=== PATIENT | male | born 1975 | race Caucasian/White ===

== ENCOUNTER 2017-12-11 09:44 | Observation (INO) | payer OTHER ==
[2017-12-11] MEDS ORDERED: Adacel (T-DAP) 0.5 ML VIAL ONE (10:12)
[2017-12-11] MEDS ORDERED: Lidocaine 1% w/Epinephrine 1:100K 30 ML VIAL ONE (10:44)
[2017-12-11 11:14] LABS: #Basophils 0.1 thou/uL (0.0-0.2); #Monocytes 0.5 thou/uL (0.11-0.59); #Neutrophils 9.9 thou/uL (1.40-6.50); %Basophils 0.5 % (0.0-1.0); %Eosinophils 0.2 % (0.0-10.0); %Monocytes 4.3 % (0.0-10.0); %Neutrophils 85.9 % (42.0-75.0); Hemoglobin 12.9 g/dL (14.0-18.0); Mean Corpuscular HGB CONC 35.4 g/dL (32.0-36.0); Mean Corpuscular Hemoglobin 31.3 pg (27.0-31.0); Mean Corpuscular Volume 88.2 fL (78.0-98.0); Mean Platelet Volume 6.6 fL (7.4-10.4); Platelet Count 223 thou/uL (130-400); Red Blood Cell (RBC) Count 4.12 mill/uL (4.70-6.10); White Blood Cell (WBC) Count 11.5 thou/uL (4.8-10.8)
[2017-12-11 11:15] LABS: INR-International Normal Ratio 1.1; PTT 26.8 SEC (22.9-36.1); Prothrombin Time 14.2 SEC (12.0-14.7)
[2017-12-11 11:23] LABS: ALT (SGPT) 25 U/L (8-55); AST (SGOT) 30 U/L (5-34); Acetaminophen Less than 6.0 mcg/mL (10.0-30.0); Albumin 4.3 g/dL (3.5-5.0); Alcohol Less than 10 mg/dL (Less than 10); Alkaline Phosphatase 46 U/L (40-150); Anion Gap 13 mmol/L (10-20); BUN (Urea Nitrogen) 21 mg/dL (8.9-20.6); Bilirubin, Total 0.5 mg/dL (0.2-1.2); Calc. Creatinine Clearance 0 mL/min (70-130); Calcium 9.1 mg/dL (7.8-10.44); Carbon Dioxide 25 mmol/L (22-29); Chloride 107 mmol/L (98-107); Estimated GFR-MDRD 69; Globulin 2.2 g/dL (2.4-3.5); Glucose 99 mg/dL (70-105); Potassium 3.8 mmol/L (3.5-5.1); Protein, Total 6.5 g/dL (6.0-8.3); Salicylate Less than 8.0 mg/dL (15.0-30.0); Sodium 141 mmol/L (136-145)
[2017-12-11] MEDS ORDERED: Ondansetron HCl/PF 4 MG/2 ML Vial IVP PRN (11:54)
[2017-12-11] MEDS ORDERED: Labetalol HCl 100 MG/20 ML VIAL SLOW IVP PRN (11:54)
[2017-12-11] MEDS ORDERED: Bisacodyl 10 MG SUPP PR PRN (11:54)
[2017-12-11] MEDS ORDERED: Acetaminophen/Codeine 30-300mg Tablet PO PRN (11:54)
[2017-12-11] MEDS ORDERED: Acetaminophen 325 MG TAB PO PRN (11:54)
[2017-12-11] MEDS ORDERED: Mag-Al 1200 mg/1200 mg/30 ML UDCUP PO PRN (11:54)
--- NOTE | 2017-12-11 12:33 | CT ---
CT BRAIN WITHOUT CONTRAST: Date: 12/11/17 PROVIDED CLINICAL HISTORY: Injury. FINDINGS: Comparison made with study dated 02/12/16. The ventricular system appears normal in size and morphology. There is no shift of the midline struct ures. The basilar cisterns appear patent. There is increased density paralleling the posterior falx a nd extending right of midline adjacent to the right tentorium. This represents a change in appearance from the prior CT scan, and findings may reflect a small amount of extra-axial hemorrhage. No additi onal evidence for intracranial hemorrhage. The extracranial soft tissues and osseous structures demon strate an unremarkable CT appearance. IMPRESSION: Findings suspicious for extra-axial blood products along the right tentorium and right posterior falx . Asymmetric dural sinus could also be considered, but is felt less likely given that this represents a change in appearance from the prior study. Findings communicated to Dr. Doran in the emergency department at 1044 hours on 12/11/17. CODE CR. POS: [facility]
--- NOTE | 2017-12-11 12:34 | CT ---
CT FACIAL BONES: Date: 12/11/17 PROVIDED CLINICAL HISTORY: Facial pain status post injury. FINDINGS: There is irregularity to the tip of the nasal process of the maxilla inferiorly in the midline. This could reflect congenital variation or a small fracture. No additional fracture is evident. The parana maday sinuses appear clear. The globes and other orbital contents appear normal. IMPRESSION: Possible small chip fracture involving the nasal process of the maxilla inferiorly. POS: [facility]
--- NOTE | 2017-12-11 12:35 | RAD ---
RIGHT HUMERUS 2 VIEWS: Date: 12/11/17 PROVIDED CLINICAL HISTORY: Right arm pain. FINDINGS: There is no evidence for fracture or other acute osseous abnormality. The soft tissues appear radiogr aphically unremarkable. IMPRESSION: No evidence for an acute osseous abnormality. If there is persistent clinical concern, conservative m anagement and follow-up imaging advised. POS: [facility]
--- NOTE | 2017-12-11 12:43 | RAD ---
LEFT ELBOW 4 VIEWS: Date: 12/11/17 PROVIDED CLINICAL HISTORY: Left elbow pain status post injury. FINDINGS: No evidence for fracture or other acute osseous abnormality. Alignment appears anatomic. Joint spaces appear preserved. IMPRESSION: No evidence for an acute osseous abnormality. If there is persistent clinical concern, conservative m anagement and follow-up imaging are advised. POS: [facility]
--- NOTE | 2017-12-11 12:44 | RAD ---
LEFT THUMB 3 VIEWS: Date: 12/11/17 PROVIDED CLINICAL HISTORY: Left thumb pain status post injury. FINDINGS/IMPRESSION: There is no evidence for fracture or other acute osseous abnormality. If there is persistent clinical concern, conservative management and follow-up imaging are advised. POS: [facility]
[2017-12-11] MEDS: Acetaminophen/Codeine 30-300mg Tablet PO PRN ×2 (14:34→21:37)
[2017-12-11] MEDS: Sodium Chloride 0.9% 1,000 ML IV SCH (14:35)
[2017-12-11 15:09] VITALS: BMI 25.1
[2017-12-12] MEDS: Acetaminophen/Codeine 30-300mg Tablet PO PRN ×2 (03:33→11:51)
[2017-12-12] MEDS: Sodium Chloride 0.9% 1,000 ML IV SCH (03:33)
--- NOTE | 2017-12-12 08:58 | CT ---
PRELIMINARY REPORT/[facility]/EMERGENCY AFTER HOURS PROCEDURE: EXAM: CT Head Without Intravenous Contrast CLINICAL HISTORY: 42 years old, male; Condition or disease; Patient HX: F/u intracerebral hemorrhage TECHNIQUE: Axial computed tomography images of the head/brain without intravenous contrast. COMPARISON: CT Brain WO Con 2017-12-11 10:11 FINDINGS: Suspect a very small amount of subdural blood along the right tentorium. The appearance is very simil ar to the comparison exam. No definite new hemorrhage in the interval. No significant mass effect or midline shift. Ventricle size is normal for age. No definite acute infarct by CT. No definite acute skull fracture. Included paranasal sinuses are essentially clear. IMPRESSION: Suspect a very small amount of subdural blood along the right tentorium. The appearance is very simil ar to the comparison exam. No definite new hemorrhage in the interval. No significant interval change. Thank you for allowing us to participate in the care of your patient. Dictated and Authenticated by: Ron Braswell MD 12/12/2017 7:07 AM Central Time ([place] & [place]) FINAL REPORT EMERGENCY AFTER HOURS CT BRAIN: Date: 12/12/17 IMPRESSION: I agree with the preliminary interpretation given by Suzy. No significant interval change in the degr ee of suspected extra-axial hemorrhage along the right tentorium. POS: [facility]
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
[2017-12-12 16:08] VITALS: BP 136/82; TEMP 98.1
== END 2017-12-12 16:50 | disposition home or self-care (01) ==
LOC: SCSER 09:44 → SURG A 13:33
PROVIDERS: ADMIT Neurological Surgery; ATTEND Neurological Surgery
DX: S06.5X9A Traumatic subdural hemorrhage with loss of consciousness of unspecified duration, initial encounter (principal); I10 Essential (primary) hypertension; Z88.0 Allergy status to penicillin; Y08.89XA Assault by other specified means, initial encounter
CPT/HCPCS: 12002; 70450; 70486; 80053; 80307; 85025; 85610; 85730; 90471; 90715; 96360; 96361; G0378; J2001

== ENCOUNTER 2024-05-29 10:47 | Outpatient (CLI) | payer BC | END 2024-05-29 10:48 | disposition home or self-care (01) | LOC: SCSRAD 10:47 | PROVIDERS: ATTEND Family Medicine | DX: M47.26 Other spondylosis with radiculopathy, lumbar region (principal); M51.16 Intervertebral disc disorders with radiculopathy, lumbar region; M43.8X6 Other specified deforming dorsopathies, lumbar region | CPT/HCPCS: 72100 ==